=== PATIENT | female | born 1995 | race Hispanic/Latino ===

== ENCOUNTER 2020-12-08 16:04 | Emergency (ER) | payer OTHER ==
--- OUTSIDE RECORDS SUMMARY | 2020-12-08 16:07 | XMS REPORT | Continuity of Care Document ---
:1995 Author Organization [facility] t Address [address] [place] [address] Care Team Providers Name Role Phone Sofie Carias Attending Clinician 5, M[facility] Usg Room Attending Clinician Unavailable Anders Marquis Attending Clinician Problems This patient has no known problems. Allergies, Adverse Reactions, Alerts This patient has no known allergies or adverse reactions. Medications This patient has no known medications. Procedures This patient has no known procedures. Encounters Start End Encounter Admission Attending Care Care Encounter Source Date/Time Date/Time Type Type Clinicians Facility Department ID 2020-12-05 2020-12-05 Telephone RODERICK Randall [id number] 00:00:00 00:00:00 Jordia R TOOL AND DIE INSPECTOR [id number] REGIONAL [id number] MATERNAL [id number] & CHILD 107 [facility] 2020-11-12 2020-11-12 Routine RODERICK Randall [id number] 14:58:40 16:07:46 Mookienda R TOOL AND DIE INSPECTOR [id number] Visit REGIONAL [id number] MATERNAL [id number] & CHILD 107 [facility] 2020-11-08 2020-11-08 Master Planner 5, [facility] UNIVERSIT [id number] 08:28:26 09:13:[id number] [facility] [id number] 2020-11-08 2020-11-08 Abstract Adrianne [facility] [id number] 00:00:00 00:00:00 Alexandra Mcnamara TOOL AND DIE INSPECTOR [id number] [facility] [id number] MATERNAL [id number] & CHILD 107 [facility] 2020-10-30 2020-10-30 Telephone Prakash [facility] [id number] 00:00:00 00:00:00 Sofie Rivera TOOL AND DIE INSPECTOR [id number] [facility] [id number] MATERNAL [id number] & CHILD 107 [facility] Results This patient has no known results.
[2020-12-08] MEDS ORDERED: DIPHENHYDRAMINE 50 MG/ML VIAL ONE (17:11)
[2020-12-08] MEDS ORDERED: NA CHLORIDE 0.9% 500 ML ONE (17:12)
[2020-12-08] MEDS ORDERED: METOCLOPRAMIDE 10 MG/2mL INJ ONE (17:15)
[2020-12-08 17:39] LABS: Urine Blood 1+ (Negative); Urine Glucose Negative (Negative); Urine Protein 2+ (Negative); Urine Specific Gravity >=1.030 (1.005-1.030); Urine pH 5.5 (5.0-7.0)
--- NOTE | 2020-12-08 18:01 | ER ---
Nurse's Notes [facility] Name: Nayla Martinez Age: 25 yrs Sex: Female : 1995 Arrival Date: 12/08/2020 Time: 16:07 Bed 16 Private MD: Diagnosis: Headache Presentation: 12/08 16:10 Chief complaint: Patient states: TORRES with N/V for 4 days. Slight cough and congestion. ll1 12+ weeks . G2, P1. No fever, but feels hot. Coronavirus screen: Client denies travel out of the [place] in the last 14 days. congestion, cough unrelated to allergies, fatigue, headache, muscle pain, nausea, vomiting. Client presents with at least one sign or symptom that may indicate coronavirus-19. Standard/surgical mask placed on the client. Ebola Screen: Patient denies travel to an Ebola-affected area in the 21 days before illness onset. Initial Sepsis Screen: Does the patient meet any 2 criteria? No. Patient's initial sepsis screen is negative. Does the patient have a suspected source of infection? Yes: Other: TORRES. Risk Assessment: Do you want to hurt yourself or someone else? Patient reports no desire to harm self or others. Onset of symptoms was December 05, 2020. 16:10 Method Of Arrival: Ambulatory 1 16:10 Acuity: ILYA 3 ll1 Triage Assessment: 18:02 Headache History: Denies prior headaches. General: Appears in no apparent distress. tr6 Pain: Pain Quality of pain is described as Also complains of. Historical: - Allergies: 16:13 No Known Allergies; ll1 - PMHx: 16:13 None; ll1 - PSHx: 16:13 section; ll1 - Immunization history:: Client reports having NOT received the Covid vaccine. Flu vaccine is not up to date. - Social history:: Smoking status: Patient denies any tobacco usage or history of. Screenin:01 Abuse screen: Denies threats or abuse. Denies injuries from another. Nutritional tr6 screening: No deficits noted. Tuberculosis screening: No symptoms or risk factors identified. Fall Risk None identified. Assessment: 16:20 General: Appears in no apparent distress. Behavior is calm, cooperative, appropriate tr6 for age. Pain: Complains of pain in headache. Neuro: No deficits noted. Cardiovascular: No deficits noted. Respiratory: No deficits noted. GI: No deficits noted. : No deficits noted. EENT: No deficits noted. Derm: No deficits noted. Musculoskeletal: No deficits noted. Vital Signs: 16:10 BP 139 / 92; Pulse 90; Resp 17; Temp 98.9; Pulse Ox 100% ; Weight 99.79 kg; Height 5 ll1 ft. 6 in. (167.64 cm); Pain 6/10; 16:10 Body Mass Index 35.51 (99.79 kg, 167.64 cm) ll1 ED Course: 16:07 Patient arrived in ED. ds1 16:13 Triage completed. ll1 16:13 Arm band placed on Patient placed in an exam room, on a stretcher. ll1 16:14 Sri Brewster, CATERINA is Primary Nurse. tr6 16:15 Piyush Gomez PA is PHCP. fahadm 16:15 Bob Milligan MD is Attending Physician. fahad 16:48 Inserted saline lock: 20 gauge in left antecubital area, using aseptic technique. dh3 18:01 Resting quietly. tr6 18:01 Patient has correct armband on for positive identification. Bed in low position. Call tr6 light in reach. Side rails up X 1. Pulse ox on. NIBP on. Door closed. Noise minimized. Visitors limited. Lights dimmed. Moved to private room. 18:01 No provider procedures requiring assistance completed. tr6 Administered Medications: 16:56 Drug: NS 0.9% 500 ml Route: IV; Rate: bolus; Site: left antecubital; tr6 16:56 Drug: Reglan (metoCLOPramide) 20 mg Route: IVP; Site: left antecubital; tr6 17:19 Follow up: Response: No adverse reaction tr6 16:56 Drug: diphenhydrAMINE 12.5 mg Route: IVP; Site: left antecubital; tr6 17:18 Follow up: Response: No adverse reaction tr6 Outcome: 17:59 Discharge ordered by . justin 18:02 Discharged to home ambulatory. tr6 18:02 Condition: good 18:02 Discharge instructions given to patient, Instructed on discharge instructions, follow up and referral plans. Demonstrated understanding of instructions. 18:17 Patient left the ED. tr6 Signatures: MickaPiyush lopes PA PA jmm Sanford, Demi ds1 Kary Ambrosio dh3 Demetris Vasquez, RN RN ll1 Sri Brewster RN RN tr6
--- NOTE | 2020-12-08 18:01 | EDPHYS ---
Physician Documentation [facility] Name: Nayla Martinez Age: 25 yrs Sex: Female : 1995 Arrival Date: 12/08/2020 Time: 16:07 Bed 16 Private MD: ED Physician Bob Milligan HPI: 12/08 16:43 This 25 yrs old Female presents to ER via Ambulatory with complaints of jmm Headache . 16:43 The patient complains of pain to the forehead, left eye, left rastafarian and left temporal jmm area. Onset: The symptoms/episode began/occurred gradually, 1 day(s) ago. Associated signs and symptoms: Pertinent positives: vomiting. Headache History: The patient has had previous headaches and this one is similar to previous episodes. This is a 25 year old female currently 12 weeks IUP that presents to the ED with complaints of left sided headache beginning yesterday with vomiting. Patient states having a similar headache with her last . Denies fever or neck stiffness. . Historical: - Allergies: 16:13 No Known Allergies; ll1 - PMHx: 16:13 None; ll1 - PSHx: 16:13 section; ll1 - Immunization history:: Client reports having NOT received the Covid vaccine. Flu vaccine is not up to date. - Social history:: Smoking status: Patient denies any tobacco usage or history of. ROS: 16:43 Constitutional: Negative for fever, chills, and weight loss, Cardiovascular: Negative jmm for chest pain, palpitations, and edema, Respiratory: Negative for shortness of breath, cough, wheezing, and pleuritic chest pain. 16:43 Neuro: Positive for headache. 16:43 All other systems are negative. Exam: 16:43 Constitutional: This is a well developed, well nourished patient who is awake, alert, jmm and in no acute distress. Head/Face: atraumatic. Eyes: EOMI, no conjunctival erythema appreciated ENT: Moist Mucus Membranes Neck: Trachea midline, Supple Chest/axilla: Normal chest wall appearance and motion. Cardiovascular: Regular rate and rhythm. No edema appreciated Respiratory: Normal respirations, no respiratory distress appreciated 16:43 Back: Normal ROM Skin: General appearance color normal MS/ Extremity: Moves all extremities, no obvious deformities appreciated, no edema noted to the lower extremities Neuro: Awake and alert, normal gait Psych: Behavior is normal, Mood is normal, Patient is cooperative and pleasant 16:43 Abdomen/GI: Inspection: abdomen appears normal, Bowel sounds: normal, Palpation: abdomen is soft and non-tender, in all quadrants. Vital Signs: 16:10 BP 139 / 92; Pulse 90; Resp 17; Temp 98.9; Pulse Ox 100% ; Weight 99.79 kg; Height 5 ll1 ft. 6 in. (167.64 cm); Pain 6/10; 16:10 Body Mass Index 35.51 (99.79 kg, 167.64 cm) ll1 MDM: 16:31 Patient medically screened. [facility] 17:58 Data reviewed: vital signs, nurses notes. Counseling: I had a detailed discussion with [facility] the patient and/or guardian regarding: the historical points, exam findings, and any diagnostic results supporting the discharge/admit diagnosis, lab results, the need for outpatient follow up, to return to the emergency department if symptoms worsen or persist or if there are any questions or concerns that arise at home. ED course: Headache relieved in the ED. Patient will follow up with systems integration analyst for reevaluation. Patient is otherwise given strict return precautions. I do not suspect sah or meningitis. . 12/08 17:39 Order name: Urine Dipstick-Ancillary; Complete Time: 17:57 [facility] 12/08 17:39 Order name: Urine --Ancillary (enter results) eb 12/08 17:40 Order name: Urine --Ancillary; Complete Time: 17:57 [facility] 12/08 16:37 Order name: Urine Dipstick-Ancillary (obtain specimen); Complete Time: 17:55 [facility] 12/08 16:38 Order name: Saline Lock; Complete Time: 16:56 [facility] Administered Medications: 16:56 Drug: NS 0.9% 500 ml Route: IV; Rate: bolus; Site: left antecubital; tr6 16:56 Drug: Reglan (metoCLOPramide) 20 mg Route: IVP; Site: left antecubital; tr6 17:19 Follow up: Response: No adverse reaction tr6 16:56 Drug: diphenhydrAMINE 12.5 mg Route: IVP; Site: left antecubital; tr6 17:18 Follow up: Response: No adverse reaction tr6 Disposition: 18:35 Co-signature as Attending Physician, Bob Milligan MD. rn Disposition Summary: 12/08/20 17:59 Discharge Ordered Location: Home jmm Condition: Stable jmm Diagnosis - Headache jmm Followup: jmm - With: Private Physician - When: 2 - 3 days - Reason: Recheck today's complaints, Continuance of care, Re-evaluation by your physician Discharge Instructions: - Discharge Summary Sheet jmm - General Headache Without Cause jmm - Migraine Headache jmm Forms: - Medication Reconciliation Form jmm - Thank You Letter jmm - Antibiotic Education jmm - Prescription Opioid Use jmm - Work release form eb Signatures: Dispatcher [employer] EDPiyush Dickinson PA PA jmm Bob Milligan MD MD rn Lewis, Lynsay, RN RN ll1 Sri Brewster RN RN tr6
[2020-12-08 18:40] VITALS: BP 139/92; TEMP 98.9; O2SAT 100
== END 2020-12-08 18:17 | disposition home or self-care (01) ==
LOC: ER 16:04
DX: O26.891 Other specified pregnancy related conditions, first trimester (principal); Z3A.12 12 weeks gestation of pregnancy
CPT/HCPCS: 81025; 81003; 96375; 96374; 99283; J2765; J1200; J7040